=== PATIENT | male | born 1950 ===

== ENCOUNTER 2023-11-08 15:33 | Outpatient (CLI) | payer OTHER | END 2023-11-08 23:59 | disposition short-term general hospital (02) | LOC: EMS 15:33 | DX: R50.9 Fever, unspecified (principal); R11.2 Nausea with vomiting, unspecified; R52 Pain, unspecified; R53.1 Weakness; R42 Dizziness and giddiness; R06.00 Dyspnea, unspecified | CPT/HCPCS: A0425; A0427 ==